=== PATIENT | female | born 1955 | race Caucasian/White ===

== ENCOUNTER 2016-11-30 09:22 | Outpatient (CLI) ==
[2016-11-30 09:53] VITALS: BMI 21.6
== END 2016-11-30 09:23 | disposition home or self-care (01) ==
LOC: AMBL 09:22
PROVIDERS: ATTEND Internal Medicine
DX: R07.9 Chest pain, unspecified (principal); R06.9 Unspecified abnormalities of breathing; F43.9 Reaction to severe stress, unspecified

== ENCOUNTER 2016-11-30 09:45 | Emergency (ER) ==
[2016-11-30 09:53] VITALS: BP 119/67; TEMP 98.5; BMI 21.6
[2016-11-30 10:11] LABS: BASOPHILS # (AUTO) 0.1 K/uL (0-0.2); BASOPHILS % (AUTO) 0.6 % (0.0-3.0); EOSINOPHILS # (AUTO) 0.1 K/ul (0.0-0.7); EOSINOPHILS % (AUTO) 1.2 % (0.0-7.0); HEMATOCRIT 38.9 % (37.0-47.0); HEMOGLOBIN 13.7 g/dl (12.0-16.0); IMMATURE GRANULOCYTE % (AUTO) 0.2 % (0.0-5.0); LYMPHOCYTES # (AUTO) 2.4 K/uL (0.60-3.4); LYMPHOCYTES % (AUTO) 28.6 (10.0-50.0); MEAN CORPUSCULAR HEMOGLOBIN 30.5 pg (27.0-31.0); MEAN CORPUSCULAR HGB CONC 35.2 (31.8-35.4); MEAN CORPUSCULAR VOLUME 86.6 fl (81.0-99.0); MONOCYTES # (AUTO) 0.6 K/uL (0.4-2.0); NEUTROPHILS # (AUTO) 5.3 K/ul (2.0-6.9); NEUTROPHILS % (AUTO) 62.4; PLATELET COUNT 231 10^3/uL (140-440); RED BLOOD COUNT 4.49 10^6/ul (4.20-5.40); WHITE BLOOD COUNT 8.52 K/ul (4.6-10.2)
[2016-11-30 10:34] LABS: ALANINE AMINOTRANSFERASE 14 U/L (12-78); ALBUMIN 3.6 g/dL (3.4-5.0); ALBUMIN/GLOBULIN RATIO 1.44; ALKALINE PHOSPHATASE 81 U/L (53-141); ANION GAP 12.9; ASPARTATE AMINO TRANSFERASE 19 U/L (15-37); BILIRUBIN,TOTAL 0.28 mg/dL (0.00-1.20); BLOOD UREA NITROGEN 10 mg/dL (7-18); BUN/CREATININE RATIO 16.39; CALCIUM 9.2 mg/dL (8.2-10.2); CARBON DIOXIDE 23 mmol/L (23-31); CHLORIDE 110 mmol/L (98-107); CREATINE KINASE 76 U/L; CREATININE 0.61 mg/dL (0.60-1.30); GLUCOSE 109 mg/dL (82-115); POTASSIUM 3.9 mmol/L (3.5-5.10); SODIUM 142 mmol/L (136-145); TOTAL PROTEIN 6.1 g/dL (5.8-8.1)
--- NOTE | 2016-11-30 10:54 | DI ---
EXAM: Chest one view HISTORY: Pain COMPARISON: 05/28/2016 TECHNIQUE: Single view of the chest was performed FINDINGS: The lungs are clear. Lungs are hyperinflated. There is no pleural effusion or pneumothor ax. The heart is normal in size. The mediastinal contour is normal, noting atherosclerosis. There are no acute abnormalities of the bones. IMPRESSION: 1. No acute cardiopulmonary process. 2. Hyperinflated lungs may suggest chronic obstructive pulmonary disease
--- NOTE | 2016-11-30 11:26 | ED.PDOC ---
General ED Provider: Dr. NITESH ALY Chief Complaint: Chest Pain Stated Complaint: chest pain Time Seen by Physician: 10:00 (lost her hus band very emotional piror to arrival had someC/P) Mode of Arrival: Ambulance Information Source: Patient, EMT Exam Limitations: No limitations Primary Care Provider: VICTORIA ORTIZ Nursing and Triage Documentation Reviewed and Agree: Yes (3 SLN AND FULL ASA WAS GIVEN BY EMS) Cardiovascular Complaint Exam - Chest Pain Complaint/Exam Onset: Gradual Duration: pain free on arrival Symptoms Are: Resolved Initial Severity: Mild Current Severity: None Location: Reports: Midsternal Character: Reports: Dull Aggravating: Reports: None Alleviating: Reports: None Associated Signs and Symptoms: Denies: Diaphoresis, Nausea, Vomiting, Fever, Palpitations, Cough, Hemoptysis, Back pain, Abdominal pain, Dizziness, Short of air, Calf pain, Calf swelling History of Healthcare-Acquired Pneumonia: Reports: No AMI/ACS Risk Factors: Reports: None Pulmonary Embolism Risk Factors: Reports: None Prior Care for this Complaint: No Recent Stress Test: No Recent Echo/LV Function: No JVD Present: No Subcutaneous Emphysema Present: No Diminshed Breath Sounds: No Reproducible Chest Wall Pain: No Bilateral Pulses Present: No Unequal Pulses Noted: No If Risk Factors for AMI/ACS Consider: EKG Review of Systems - Review Of Systems Constitutional: Reports: No symptoms Eyes: Reports: No symptoms Ears, Nose, Mouth, Throat: Reports: No symptoms Respiratory: Reports: No symptoms Cardiac: Reports: Chest pain GI: Reports: No symptoms : Reports: No symptoms Musculoskeletal: Reports: No symptoms Skin: Reports: No symptoms Neurological: Reports: No symptoms Endocrine: Reports: No symptoms Hematologic/Lymphatic: Reports: No symptoms All Other Systems: Reviewed and Negative Past Medical History - Past Medical History Previously Healthy: No Endocrine: Reports: Dyslipidemia Cardiovascular: Reports: None Respiratory: Reports: None Hematological: Reports: None Gastrointestinal: Reports: None Genitourinary: Reports: None Neuro/Psych: Reports: None Musculoskeletal: Reports: None Cancer: Reports: None Last Menstrual Period: NONE - Surgical History General Surgical History: Reports: None - Family History Family History: Reports: None - Social History Smoking Status: Current every day smoker, Heavy tobacco smoker Hx Substance Use: No Alcohol Screening: None Physical Exam - Physical Exam Appearance: Well-appearing, No pain distress, Well-nourished Eyes: NOLVIA, EOMI, Conjunctiva clear ENT: Ears normal, Nose normal, Oropharynx normal Respiratory: Airway patent, Breath sounds clear, Breath sounds equal, Respirations nonlabored Cardiovascular: RRR, Pulses normal, No rub, No murmur GI/: Soft, Nontender, No masses, Bowel sounds normal, No Organomegaly Musculoskeletal: Normal strength, ROM intact, No edema, No calf tenderness Skin: Warm, Dry, Normal color Neurological: Sensation intact, Motor intact, Reflexes intact, Cranial nerves intact, Alert, Oriented Psychiatric: Affect appropriate, Mood appropriate Interpretation - Radiology Interpretation Radiology Interpretation By: Radiologist Radiology Results: Negative - Side Panel Padder Rate: Normal Rhythm: Sinus Ectopy: None - EKG Interpretation Rate: Normal Rhythm: Sinus Ectopy: None [place]: NL ST Segment: Normal Critical Care Note - Critical Care Note Total Time (mins): 0 Course - Course Hematology/Chemistry: 11/30/16 10:08 11/30/16 10:08 Orders, Labs, Meds: Lab Review 11/30/16 10:08 WBC 8.52 RBC 4.49 Hgb 13.7 Hct 38.9 MCV 86.6 MCH 30.5 MCHC 35.2 RDW Coeff of Virginie 13.3 Plt Count 231 Immature Gran % (Auto) 0.2 Neut % (Auto) 62.4 Lymph % (Auto) 28.6 [place] % (Auto) 7.0 Eos % (Auto) 1.2 Baso % (Auto) 0.6 Immature Gran # (Auto) 0.0 Neut # 5.3 Lymph # 2.4 [place] # 0.6 Eos # 0.1 Baso # 0.1 Sodium 142 Potassium 3.9 Chloride 110 H Carbon Dioxide 23 Anion Gap 12.9 BUN 10 Creatinine 0.61 Estimated GFR (MDRD) 100.00 BUN/Creatinine Ratio 16.39 Glucose 109 Calcium 9.2 Total Bilirubin 0.28 AST 19 ALT 14 Alkaline Phosphatase 81 Total Creatine Kinase 76 Troponin I < 0.0100 Total Protein 6.1 Albumin 3.6 Globulin 2.5 Albumin/Globulin Ratio 1.44 Orders Category Date Time Status EKG-(ED ONLY) Stat CARDIO 11/30/16 09:49 Completed ED IV/MEDIPORT/POWERPORT .ONCE EMERGENCY 11/30/16 09:49 Active CBC W/ AUTO DIFF Stat LAB 11/30/16 10:08 Completed COMPREHENSIVE METABOLIC PANEL Stat LAB 11/30/16 10:08 Completed CREATINE KINASE Stat LAB 11/30/16 10:08 Completed TROPONIN I Stat LAB 11/30/16 10:08 Completed 0.9 % Sodium Chloride [Saline Flush] MEDS 11/30/16 09:48 Active 1 syr IVF PRN PRN CHEST, 1V AP ONLY Stat RADS 11/30/16 09:49 Completed Medications Generic Name Dose Route Start Last Admin Trade Name Freq PRN Reason Stop Dose Admin Sodium Chloride 1 syr 11/30/16 09:48 Saline Flush IVF PRN PRN To flush IV Vital Signs: Temp Pulse Resp BP Pulse Ox 11/30/16 09:46 98.5 F 59 L 18 119/67 97 NAHID Risk Score NAHID Risk Score: Risk Score Odds of by 30D 0 0.1 (0.1-0.2) 1 0.3 (0.2-0.3) 2 0.4 (0.3-0.5) 3 0.7 (0.6-0.9) 4 1.2 (1.0-1.5) 5 2.2 (1.9-2.6) 6 3.0 (2.5-3.6) 7 4.8 (3.8-6.1) Departure - Departure Time of Disposition: 11:26 Disposition: HOME SELF-CARE Discharge Problem: Chest pain Instructions: Chest Pain (ED), Angina (ED) Condition: Good Pt referred to PMD for follow-up: No Additional Instructions: Please call your Family Physician as soon as possible to schedule a follow-up appointment. Allergies/Adverse Reactions: Allergies codeine Adverse Reaction (Verified 11/30/16 09:54) Penicillins Adverse Reaction (Verified 11/30/16 09:54) Home Medications: Ambulatory Orders Lorazepam [Ativan] 0.5 mg PO PRN PRN 11/30/16 Simvastatin [Zocor] 10 mg PO BEDTIME 11/30/16
== END 2016-11-30 11:33 | disposition home or self-care (01) ==
LOC: ED 09:45
DX: R07.9 Chest pain, unspecified (principal); F17.210 Nicotine dependence, cigarettes, uncomplicated
CPT/HCPCS: 36415; 80053; 82550; 84484; 85025; 93005; 93010; 99283